=== PATIENT | female | born 1995 | race Caucasian/White ===

== ENCOUNTER 2018-02-10 16:39 | Observation (INO) ==
--- NOTE | 2018-02-10 18:41 | DR.UPDATE ---
H&P Update History and Physical Update: PRESENTED TO THE OFFICE WITH COMPLAINTS OF ABDOMINAL PAIN, NAUSEA, VOMITING, AND RIGHT SHOULDER PAIN. SHE REPORTED THAT SYMPTOMS WERE WORSE AFTER EATING. SHE HAS BEEN TREATED FOR A URINARY TRACT INFECTION FOR THE PAST WEEK. SHE WAS PRESCRIBED BACTRIM DS 1 TAB PO BID. SHE ALSO REPORTS TAKING ZOFRAN AT [facility] WITHOUT IMPROVEMENT IN SYMPTOMS. AN OUTPATIENT HIDA SCAN WAS OBTAINED AND REVEALED AN ABNORMAL GALLBLADDER EJECTION FRACTION OF 5%. SHE WAS ADMITTED TO THE HOSPITAL FOR FURTHER EVALUATION AND TREATMENT OF SEVERE ABDOMINAL PAIN, NAUSEA, VOMITING, AND BILIARY DYSKINESIA. WE PLAN TO CONSULT FOR POSSIBLE LAP JADYN. SHE WILL BE STARTED ON NORMAL SALINE AT 80ML/HR, DEMEROL 25MG IV Q4H PRN, AND ZOFRAN 4MG IV Q4H PRN. PATIENT HAS BEEN SEEN AND EXAMINED WITH NO OTHER CHANGES NOTED TO H&P. Changes noted: NO Yes with the following:
[2018-02-10] MEDS ORDERED: ZOFRAN INJ 4 MG VIAL IVP SCH (18:47)
[2018-02-10] MEDS ORDERED: DEMEROL INJ IVP SCH (18:47)
[2018-02-10 19:12] LABS: BASOPHILS % (AUTO) 0.7 % (0.2-1.0); EOSINOPHILS # (AUTO) 0.1 x10^3/uL (0.0-0.2); EOSINOPHILS % (AUTO) 1.7 % (0.9-2.9); HEMATOCRIT 41.3 % (36.0-47.0); HEMOGLOBIN 13.7 g/dL (12.0-16.0); LYMPHOCYTES # (AUTO) 2.3 X10^3/uL (1.3-2.9); LYMPHOCYTES % (AUTO) 36.6 % (21.0-51.0); MEAN CORPUSCULAR HEMOGLOBIN 29.7 pg (27.0-34.0); MEAN CORPUSCULAR HGB CONC 33.3 g/dL (33.0-35.0); MEAN CORPUSCULAR VOLUME 89.2 fL (80.0-100.0); MONOCYTES # (AUTO) 0.5 x10^3/uL (0.3-0.8); MONOCYTES % (AUTO) 8.5 % (0.0-13.0); NEUTROPHILS # (AUTO) 3.2 x10^3/uL (2.2-4.8); NEUTROPHILS % (AUTO) 52.5 % (42.0-75.0); PLATELET COUNT 338 X10^3/uL (150.0-450.0); RED BLOOD COUNT 4.63 X10^6/uL (3.5-5.4); RED CELL DISTRIBUTION WIDTH 12.9 % (11.6-16.5); WHITE BLOOD COUNT 6.2 X10^3/uL (3.6-10.0)
[2018-02-10 19:21] LABS: ALANINE AMINOTRANSFERASE 27 Units/L (12-78); ALBUMIN 3.6 g/dL (3.4-5.0); ALKALINE PHOSPHATASE 91 Units/L (46-116); ASPARTATE AMINO TRANSFERASE 17 Units/L (15-37); BLOOD UREA NITROGEN 10 mg/dL (7-18); CALCIUM 8.4 mg/dL (8.5-10.1); CARBON DIOXIDE 26.9 mmol/L (21-32); CHLORIDE 106 mmol/L (98-107); CREATININE 0.85 mg/dL (0.55-1.02); SODIUM 144 mmol/L (136-145); TOTAL PROTEIN 7.1 g/dL (6.4-8.2); eGFR NON BLACK RACES > 60 (>60)
[2018-02-10] MEDS: NS 1000 ML 1,000 ML IV SCH (20:05)
[2018-02-10 21:43] LABS: BILIRUBIN,URINE NEGATIVE (NEGATIVE); BLOOD/HEMOGLOBIN,URINE 5+ (NEGATIVE); GLUCOSE, URINE NEGATIVE (NEGATIVE); KETONES,URINE NEGATIVE (NEGATIVE); LEUKOCYTE ESTERASE ,URINE NEGATIVE (NEGATIVE); NITRITES,URINE NEGATIVE (NEGATIVE); PROTEIN,URINE NEGATIVE (NEGATIVE); UROBILINOGEN,URINE NORMAL (NORMAL)
[2018-02-10 22:10] LABS: APPEARANCE,URINE SLIGHTLY HAZY (CLEAR); COLOR,URINE YELLOW (YELLOW); RBC,URINE 20-30 /HPF (NONE SEEN)
[2018-02-10 22:11] LABS: AMORPHOUS SEDIMENT,UR 1+ /HPF (NEGATIVE); BACTERIA,URINE TRACE /HPF (NEGATIVE); SQUAMOUS EPITHELIAL CELL,UR RARE /HPF (NEGATIVE)
[2018-02-11] MEDS: ZOFRAN INJ 4 MG VIAL IVP SCH ×5 (01:02→17:12)
[2018-02-11] MEDS: DEMEROL INJ IVP SCH ×5 (01:02→15:34)
[2018-02-11 06:14] LABS: ALANINE AMINOTRANSFERASE 24 Units/L (12-78); ALBUMIN 3.1 g/dL (3.4-5.0); ALKALINE PHOSPHATASE 78 Units/L (46-116); ASPARTATE AMINO TRANSFERASE 17 Units/L (15-37); BASOPHILS % (AUTO) 0.5 % (0.2-1.0); BLOOD UREA NITROGEN 9 mg/dL (7-18); CALCIUM 7.8 mg/dL (8.5-10.1); CARBON DIOXIDE 26.6 mmol/L (21-32); CHLORIDE 108 mmol/L (98-107); COR CA(FOR HYPOALB) 8.5 mg/dL (8.5-10.1); CREATININE 0.85 mg/dL (0.55-1.02); EOSINOPHILS # (AUTO) 0.1 x10^3/uL (0.0-0.2); EOSINOPHILS % (AUTO) 1.8 % (0.9-2.9); HEMATOCRIT 37.5 % (36.0-47.0); HEMOGLOBIN 12.7 g/dL (12.0-16.0); LYMPHOCYTES # (AUTO) 2.4 X10^3/uL (1.3-2.9); LYMPHOCYTES % (AUTO) 41.2 % (21.0-51.0); MEAN CORPUSCULAR HEMOGLOBIN 30.1 pg (27.0-34.0); MEAN CORPUSCULAR HGB CONC 33.8 g/dL (33.0-35.0); MEAN PLATELET VOLUME 9.3 fL (7.4-11.0); MONOCYTES # (AUTO) 0.5 x10^3/uL (0.3-0.8); MONOCYTES % (AUTO) 8.6 % (0.0-13.0); NEUTROPHILS # (AUTO) 2.8 x10^3/uL (2.2-4.8); NEUTROPHILS % (AUTO) 47.9 % (42.0-75.0); PLATELET COUNT 288 X10^3/uL (150.0-450.0); RED BLOOD COUNT 4.21 X10^6/uL (3.5-5.4); RED CELL DISTRIBUTION WIDTH 12.6 % (11.6-16.5); SODIUM 144 mmol/L (136-145); TOTAL PROTEIN 6.2 g/dL (6.4-8.2); WHITE BLOOD COUNT 5.9 X10^3/uL (3.6-10.0); eGFR NON BLACK RACES > 60 (>60)
[2018-02-11 06:23] VITALS: BMI 28.9
[2018-02-11] MEDS: NS 1000 ML 1,000 ML IV SCH (06:50)
[2018-02-11] MEDS ORDERED: PHENERGAN INJ 25 MG IV PRN (09:08)
[2018-02-11] MEDS ORDERED: NS IRRIGATION 3000 ML ONE (09:42)
[2018-02-11] MEDS ORDERED: NEOSTIGMINE INJ ONE (10:00)
[2018-02-11] MEDS ORDERED: SUPRANE IN ONE (10:00)
[2018-02-11] MEDS ORDERED: QUELICIN (OR ANECTINE) ONE (10:00)
[2018-02-11] MEDS ORDERED: VERSED ONE ×2 (10:00→10:02)
[2018-02-11] MEDS ORDERED: TORADOL 30 MG VIAL ONE (10:00)
[2018-02-11] MEDS ORDERED: ZOFRAN INJ 4 MG VIAL ONE (10:00)
[2018-02-11] MEDS ORDERED: ROBINUL ONE (10:00)
[2018-02-11] MEDS ORDERED: NORCURON INJ 10 MG VIAL ONE (10:00)
[2018-02-11] MEDS ORDERED: DIPRIVAN VIAL ONE (10:00)
[2018-02-11] MEDS ORDERED: XYLOCAINE 1 % (PLAIN) ONE ×2 (10:00→10:02)
[2018-02-11] MEDS ORDERED: PITOCIN ONE (10:02)
[2018-02-11] MEDS ORDERED: MARCAINE SPINAL ONE (10:02)
[2018-02-11] MEDS ORDERED: EPHEDRINE SULFATE INJ ONE (10:02)
[2018-02-11 10:20] LABS: SERUM PREGNANCY TEST, QUAL NEGATIVE <10 mIU/mL
[2018-02-11] MEDS ORDERED: LR 1000 ML IV 1,000 ML IV ONE (12:05)
[2018-02-11] MEDS ORDERED: ANCEF VIAL 1 GRAM ONE (12:25)
[2018-02-11] MEDS ORDERED: FENTANYL INJ 250 mcg ONE (12:52)
[2018-02-11] MEDS ORDERED: BENADRYL INJ 50 MG VIAL IVP PRN (13:44)
[2018-02-11] MEDS ORDERED: ZOFRAN INJ 4 MG VIAL IVP PRN (13:44)
[2018-02-11] MEDS ORDERED: DILAUDID INJ IVP PRN (13:44)
[2018-02-11] MEDS ORDERED: REGLAN INJ 10 MG VIAL IVP PRN (13:44)
[2018-02-11] MEDS ORDERED: PHENERGAN INJ 25 MG IVP PRN (13:44)
[2018-02-11] MEDS ORDERED: BACTROBAN TOPICAL OINT ONE (13:49)
[2018-02-11] MEDS ORDERED: DILAUDID INJ ONE (14:18)
[2018-02-11 17:01] VITALS: BP 100/54
[2018-02-11] MEDS ORDERED: ZOFRAN TAB 4 MG PO ONE (17:17)
[2018-02-11] MEDS ORDERED: ZOFRAN TAB 4 MG ONE (17:18)
--- NOTE | 2018-02-25 02:25 | DR.CARTERS ---
Short Stay Summary - Short Stay Summary for: Short Stay Summary for Date of:: 02/11/18 - Admission Date Date of Admission: 02/10/18 - Discharge Date Discharge Date: 02/11/18 - Admission Diagnoses (1) Abdominal pain Status: Acute (2) Biliary dyskinesia Status: Acute (3) Nausea & vomiting Status: Acute - Hospital Course Hospital Course: DAY ONE, PRESENTED TO THE OFFICE WITH COMPLAINTS OF ABDOMINAL PAIN, NAUSEA, VOMITING, AND RIGHT SHOULDER PAIN. SHE REPORTED THAT SYMPTOMS WERE WORSE AFTER EATING. SHE HAS BEEN TREATED FOR A URINARY TRACT INFECTION FOR THE PAST WEEK. SHE WAS PRESCRIBED BACTRIM DS 1 TAB PO BID. SHE ALSO REPORTS TAKING ZOFRAN AT HOME WITHOUT IMPROVEMENT IN SYMPTOMS. AN OUTPATIENT HIDA SCAN WAS OBTAINED AND REVEALED AN ABNORMAL GALLBLADDER EJECTION FRACTION OF 5%. SHE WAS ADMITTED TO THE HOSPITAL FOR FURTHER EVALUATION AND TREATMENT OF SEVERE ABDOMINAL PAIN, NAUSEA, VOMITING, AND BILIARY DYSKINESIA. WE PLAN TO CONSULT FOR POSSIBLE LAP JADYN. SHE WILL BE STARTED ON NORMAL SALINE AT 80ML/HR, DEMEROL 25MG IV Q4H PRN, AND ZOFRAN 4MG IV Q4H PRN. WE CONTINUED TO MONITOR AND TREAT PATIENT. DAY TWO. DR. JAVIER CONSULTED PATIENT AND PERFORMED A LAPCHOLE. PATIENT WAS TRANSFERRED BACK TO ROOM AFTER LAPCHOLE WHERE SHE WAS MONITORED PER PROTOCOL. LABS WERE IN NORMAL RANGE FOR PATIENT. VITALS WERE STABLE. PATIENT VOICED COMPLAINTS OF PAIN AND SORENESS IN ABDOMEN, WHICH IMPROVED WITH PAIN MEDICATION. WE PLANNED FOR DISCHARGE HOME AFTER RECOVERY FROM SURGICAL PROCEDURE. INSTRUCTIONS WERE DISCUSSED WITH PATIENT AND FAMILY, BOTH VOICED UNDERSTANDING. PATIENT DISCHARGED HOME IN STABLE CONDITION WITH FAMILY. - Discharge Medications Discharge Medications: Home Medication List citalopram 10 mg PO DAILY 02/11/18 [History] ondansetron HCl [Zofran] 4 mg PO TID PRN #20 tab 02/11/18 [Rx] oxycodone-acetaminophen [Percocet] 1 tab PO Q4-6H PRN #30 tab 02/11/18 [Rx] phentermine 37.5 mg PO DAILY 02/11/18 [History] Prescriptions: ondansetron HCl [Zofran] Nicola Clemons oxycodone-acetaminophen [Percocet] Nicola Clemons - Discharge Plan Disposition: 01 HOME, SELF-CARE Condition: Stable Prescriptions: ondansetron HCl [Zofran] 4 mg PO TID PRN #20 tab PRN Reason: oxycodone-acetaminophen [Percocet] 1 tab PO Q4-6H PRN #30 tab PRN Reason: - Follow up/Referrals Follow up/Referrals: ROSA MARIA ÁLVAREZ [Nurse Practitioner] - 02/17/18 12:10 pm SADIA JAVIER [STAFF PHYSICIAN] - 02/17/18 2:10 pm - Instructions Instructions: Laparoscopic Cholecystectomy, Care After, Dumping Syndrome Diet, Abdominal Pain, Adult, [id number], Gallbladder Eating Plan, Dumping Syndrome Additional Instructions: SOFT, BLAND DIET TOLERATED. NO HEAVY LIFTING. Forms: Patient Portal
== END 2018-02-11 17:25 | disposition home or self-care (01) ==
LOC: MED/SURG
PROVIDERS: ADMIT Internal Medicine; ATTEND Internal Medicine
DX: R11.2 Nausea with vomiting, unspecified; R10.84 Generalized abdominal pain; K82.8 Other specified diseases of gallbladder; K81.9 Cholecystitis, unspecified
CPT/HCPCS: 36415; 80053; 81001; 84703; 85025; 96367; 96374; A4216; A4222; G0378; J0330; J0690; J1170; J1885; J2175; J2250; J2405; J2550; J2590; J2704; J2710; J3010; J3490; J7030; J7120; S0181